=== PATIENT | male | born 1960 | race African-American/Black ===

== ENCOUNTER 2017-03-12 17:55 | Emergency (ER) | payer MEDICAID ==
[~2017-03-12] VITALS: Ht 175.3 cm; Wt 57.0 kg
[~2017-03-12 17:55] MED LIST: ACET-2178 PO; CHOL400T15 MT; FLUO-124 PO; HYDR-2510 PO; LORA1TAB PO; MELO-106 PO; METO-539 PO; MULT-1146 PO; SPIR50TA26 PO; TRAZ-132 PO
[2017-03-12] MEDS ORDERED: OXYCODONE HCL/ACETAMINOPHEN 5/325MG TABLET PO ONE (22:00)
[2017-03-12 22:23] LABS: BASOPHILS % 0.6 % (0.0-2.0); EOSINOPHILS % 1.8 % (0.0-5.0); HEMATOCRIT. 39.9 % (42.0-52.0); HEMOGLOBIN. 13.3 g/dL (14.0-18.0); LYMPHOCYTES % 7.2 % (20.0-50.0); MEAN CORPUSCULAR HEMOGLOBIN 27.3 pg (28.0-32.0); MEAN CORPUSCULAR VOLUME 81.9 fL (80.0-94.0); MEAN PLATELET VOLUME 9.2 fl (7.4-10.4); NEUTROPHILS % 79.4 % (40.0-76.0); PLATELET 251 x1000/uL (130-400); RED BLOOD CELL COUNT 4.88 mill/uL (4.7-6.1); RED CELL DISTRIBUTION WIDTH 15.8 % (11.6-14.6)
[2017-03-12 22:35] LABS: CARBON DIOXIDE 23 mEq/L (21-32); CHLORIDE 98 mEq/L (98-107)
[2017-03-12 22:49] LABS: INR 1.1; PROTHROMBIN TIME 11.6 sec
[2017-03-12 23:53] LABS: CLARITY URINE CLOUDY (CLEAR); COLOR URINE DARK YELLOW (YELLOW); KETONES URINE NEGATIVE (NEGATIVE); LEUKOCYTE ESTERASE URINE NEGATIVE (NEGATIVE); NITRITE URINE NEGATIVE (NEGATIVE); OCCULT BLOOD URINE TRACE (NEGATIVE); PROTEIN URINE 2+ (NEGATIVE); SPECIFIC GRAVITY URINE 1.023 (1.005-1.030); UROBILINOGEN URINE 0.2 E.U./dL (0.2-1.0)
[2017-03-13] MEDS ORDERED: OXYCODONE HCL/ACETAMINOPHEN 5/325MG TABLET PO ONE (00:15)
[2017-03-13 00:42] VITALS: BP 173/108
== END 2017-03-13 01:22 | disposition home or self-care (01) ==
LOC: ER 21:45
DX: N43.3 Hydrocele, unspecified (principal); F41.9 Anxiety disorder, unspecified; F10.20 Alcohol dependence, uncomplicated; I12.9 Hypertensive chronic kidney disease with stage 1 through stage 4 chronic kidney disease, or unspecified chronic kidney disease; N18.9 Chronic kidney disease, unspecified; F17.200 Nicotine dependence, unspecified, uncomplicated
CPT/HCPCS: 36415; 76870; 80053; 81001; 85025; 85610; 93976; 99285; Z7610

== ENCOUNTER 2017-05-19 15:26 | Emergency (ER) | payer MEDICAID ==
[~2017-05-19] VITALS: Ht 175.3 cm; Wt 57.0 kg
[~2017-05-19 15:26] MED LIST changes: -METO-539 PO; +METO50TA5 PO
[2017-05-19] MEDS ORDERED: ASPIRIN 81MG TABLET PO STA (16:38)
[2017-05-19 17:17] LABS: BASOPHILS % 1.1 % (0.0-2.0); EOSINOPHILS % 4.3 % (0.0-5.0); HEMATOCRIT. 40.6 % (42.0-52.0); HEMOGLOBIN. 13.1 g/dL (14.0-18.0); LYMPHOCYTES % 13.1 % (20.0-50.0); MEAN CORPUSCULAR HEMOGLOBIN 27.3 pg (28.0-32.0); MEAN CORPUSCULAR VOLUME 84.3 fL (80.0-94.0); MEAN PLATELET VOLUME 9.3 fl (7.4-10.4); NEUTROPHILS % 70.5 % (40.0-76.0); PLATELET 275 x1000/uL (130-400); RED BLOOD CELL COUNT 4.82 mill/uL (4.7-6.1); RED CELL DISTRIBUTION WIDTH 15.4 % (11.6-14.6)
[2017-05-19 17:21] LABS: CHLORIDE 104 mEq/L (98-107)
[2017-05-19 17:22] LABS: INR 1.1; PARTIAL THROMBOPLASTIN TIME 29.9 sec (23.4-31.0); PROTHROMBIN TIME 11.5 sec (9.4-11.6)
[2017-05-19 17:26] LABS: CARBON DIOXIDE 23 mEq/L (21-32)
[2017-05-19 17:30] LABS: ETHANOL BLOOD < 10 mg/dL
[2017-05-19 17:33] LABS: TROPONIN I < 0.02 ng/mL (0.00-0.04)
[2017-05-19 18:45] LABS: CLARITY URINE CLOUDY (CLEAR); COLOR URINE YELLOW (YELLOW); GLUCOSE URINE NEGATIVE (NEGATIVE); KETONES URINE TRACE (NEGATIVE); LEUKOCYTE ESTERASE URINE NEGATIVE (NEGATIVE); NITRITE URINE NEGATIVE (NEGATIVE); OCCULT BLOOD URINE NEGATIVE (NEGATIVE); PROTEIN URINE TRACE (NEGATIVE); SPECIFIC GRAVITY URINE 1.023 (1.005-1.030); UROBILINOGEN URINE 0.2 E.U./dL (0.2-1.0)
[2017-05-19 19:06] LABS: *AMPHETAMINES SCREEN URINE NEGATIVE (NEGATIVE); *BARBITURATES SCREEN URINE NEGATIVE (NEGATIVE); *BENZODIAZEPINES SCREEN URINE NEGATIVE (NEGATIVE); *COCAINE SCREEN URINE NEGATIVE (NEGATIVE); CANNABINOID URINE SCREEN PRESUMTIVE POSITIVE (NEGATIVE); METHADONE URINE SCREEN NEGATIVE (NEGATIVE); OPIATES URINE SCREEN NEGATIVE (NEGATIVE); PHENCYCLIDINE URINE SCREEN NEGATIVE (NEGATIVE)
[2017-05-19 19:34] VITALS: BP 131/79
== END 2017-05-19 19:53 | disposition left against medical advice (07) ==
LOC: ER 15:52 → CANBEDREQ 22:56
DX: R07.89 Other chest pain (principal); G89.29 Other chronic pain; I13.0 Hypertensive heart and chronic kidney disease with heart failure and stage 1 through stage 4 chronic kidney disease, or unspecified chronic kidney disease; N18.9 Chronic kidney disease, unspecified; D63.1 Anemia in chronic kidney disease; J98.11 Atelectasis; F41.9 Anxiety disorder, unspecified; F17.210 Nicotine dependence, cigarettes, uncomplicated; K76.9 Liver disease, unspecified
CPT/HCPCS: 36415; 71010; 80053; 80305; 81001; 83880; 84484; 85025; 85610; 85730; 93005; 99285; G0482

== ENCOUNTER 2017-06-15 08:35 | Emergency (ER) | payer MEDICAID ==
[~2017-06-15] VITALS: Ht 175.3 cm; Wt 59.0 kg
[2017-06-15] MEDS ORDERED: SODIUM CHLORIDE 0.9% 1,000 ML IV ONE (09:20)
[2017-06-15] MEDS ORDERED: ONDANSETRON HCL 4MG/2ML VIAL IV STA (09:20)
[2017-06-15] MEDS ORDERED: MORPHINE SULFATE 4 MG/ML CPJ (NOT FOR IM USE) IV STA (09:20)
[2017-06-15] MEDS ORDERED: MORPHINE SULFATE 10 MG/ML CPJ IV STA (09:37)
[2017-06-15 10:22] LABS: HEMATOCRIT. 46.4 % (42.0-52.0); HEMOGLOBIN. 15.5 g/dL (14.0-18.0); MEAN CORPUSCULAR HEMOGLOBIN 27.8 pg (28.0-32.0); MEAN CORPUSCULAR VOLUME 83.1 fL (80.0-94.0); MEAN PLATELET VOLUME 8.7 fl (7.4-10.4); PLATELET 247 x1000/uL (130-400); RED BLOOD CELL COUNT 5.58 mill/uL (4.7-6.1); RED CELL DISTRIBUTION WIDTH 15.4 % (11.6-14.6)
[2017-06-15 10:39] LABS: CARBON DIOXIDE 26 mEq/L (21-32); CHLORIDE 100 mEq/L (98-107); TROPONIN I < 0.02 ng/mL (0.00-0.04)
[2017-06-15 10:41] LABS: INR 1.1; PROTHROMBIN TIME 11.3 sec (9.4-11.6)
[2017-06-15 10:51] LABS: PLATELET ESTIMATE NORMAL
[2017-06-15] MEDS ORDERED: IOHEXOL-300 100 ML BOTTLE ONE (12:40)
[2017-06-15 13:20] LABS: GLUCOSE URINE NEGATIVE (NEGATIVE); KETONES URINE TRACE (NEGATIVE); LEUKOCYTE ESTERASE URINE NEGATIVE (NEGATIVE); NITRITE URINE NEGATIVE (NEGATIVE); OCCULT BLOOD URINE NEGATIVE (NEGATIVE); PROTEIN URINE NEGATIVE (NEGATIVE); UROBILINOGEN URINE 0.2 E.U./dL (0.2-1.0)
[2017-06-15 13:21] LABS: CLARITY URINE CLEAR (CLEAR); COLOR URINE YELLOW (YELLOW)
[2017-06-15 18:03] VITALS: BP 147/93
== END 2017-06-15 18:00 | disposition short-term general hospital (02) ==
LOC: ER 11:34
DX: C79.82 Secondary malignant neoplasm of genital organs (principal); C78.02 Secondary malignant neoplasm of left lung; I10 Essential (primary) hypertension; N43.3 Hydrocele, unspecified; C80.1 Malignant (primary) neoplasm, unspecified; F41.9 Anxiety disorder, unspecified; I13.0 Hypertensive heart and chronic kidney disease with heart failure and stage 1 through stage 4 chronic kidney disease, or unspecified chronic kidney disease; N18.9 Chronic kidney disease, unspecified; I50.9 Heart failure, unspecified; F12.90 Cannabis use, unspecified, uncomplicated; F10.20 Alcohol dependence, uncomplicated; K70.9 Alcoholic liver disease, unspecified; Y90.9 Presence of alcohol in blood, level not specified; D64.9 Anemia, unspecified; F17.210 Nicotine dependence, cigarettes, uncomplicated; Z79.899 Other long term (current) drug therapy
CPT/HCPCS: 36415; 71010; 71260; 76870; 80053; 81003; 82962; 83605; 83690; 83880; 84484; 85025; 85610; 87040; 87086; 93005; 93976; 96361; 96374; 96375; 99285; J2270; J2405; Q9967; J7030

== ENCOUNTER 2017-07-20 10:01 | Emergency (ER) | payer MEDICAID ==
[~2017-07-20] VITALS: Ht 175.3 cm; Wt 54.0 kg
[~2017-07-20 10:01] MED LIST changes: +METO-539 PO; -METO50TA5 PO
[2017-07-20] MEDS ORDERED: MORPHINE SULFATE 4 MG/ML CPJ (NOT FOR IM USE) IV STA (11:24)
[2017-07-20] MEDS ORDERED: ONDANSETRON HCL 4MG/2ML VIAL IV STA (11:24)
[2017-07-20] MEDS ORDERED: MORPHINE SULFATE 10 MG/ML CPJ IV NR (11:32)
[2017-07-20 11:47] LABS: CLARITY URINE CLEAR (CLEAR); COLOR URINE YELLOW (YELLOW); GLUCOSE URINE NEGATIVE (NEGATIVE); KETONES URINE NEGATIVE (NEGATIVE); LEUKOCYTE ESTERASE URINE NEGATIVE (NEGATIVE); NITRITE URINE NEGATIVE (NEGATIVE); OCCULT BLOOD URINE NEGATIVE (NEGATIVE); PROTEIN URINE NEGATIVE (NEGATIVE); SPECIFIC GRAVITY URINE 1.012 (1.005-1.030); UROBILINOGEN URINE 0.2 E.U./dL (0.2-1.0)
[2017-07-20 11:56] LABS: BASOPHILS % 0.8 % (0.0-2.0); EOSINOPHILS % 6.3 % (0.0-5.0); HEMATOCRIT. 46.1 % (42.0-52.0); HEMOGLOBIN. 14.8 g/dL (14.0-18.0); LYMPHOCYTES % 10.4 % (20.0-50.0); MEAN CORPUSCULAR HEMOGLOBIN 26.8 pg (28.0-32.0); MEAN CORPUSCULAR VOLUME 83.5 fL (80.0-94.0); MEAN PLATELET VOLUME 8.2 fl (7.4-10.4); MONOCYTES % 13.8 % (2.0-8.0); NEUTROPHILS % 68.7 % (40.0-76.0); PLATELET 284 x1000/uL (130-400); RED BLOOD CELL COUNT 5.52 mill/uL (4.7-6.1); RED CELL DISTRIBUTION WIDTH 15.5 % (11.6-14.6)
[2017-07-20 12:07] LABS: CHLORIDE 95 mEq/L (98-107)
[2017-07-20 12:13] LABS: CARBON DIOXIDE 24 mEq/L (21-32)
[2017-07-20] MEDS ORDERED: SODIUM CHLORIDE 0.9% 1000ML BAG (SEPSIS BOLUS) IV ONE (12:30)
[2017-07-20] MEDS ORDERED: SODIUM CHLORIDE 0.9% 1,620 ML IV SCH (12:30)
[2017-07-20 14:01] VITALS: BP 121/54
== END 2017-07-20 14:41 | disposition home or self-care (01) ==
LOC: ER 11:21
DX: N50.82 Scrotal pain (principal); E86.0 Dehydration; E87.1 Hypo-osmolality and hyponatremia; N43.3 Hydrocele, unspecified; R03.0 Elevated blood-pressure reading, without diagnosis of hypertension; F10.20 Alcohol dependence, uncomplicated; Y90.9 Presence of alcohol in blood, level not specified
CPT/HCPCS: 36415; 76870; 80053; 81003; 83605; 83690; 85025; 93976; 96374; 96375; 99285; J2270; J2405; Z7610

== ENCOUNTER 2017-10-08 03:35 | Inpatient (IN) | payer MEDICAID ==
[~2017-10-08] VITALS: Ht 175.3 cm; Wt 50.8 kg
[~2017-10-08 03:35] MED LIST changes: -SPIR50TA26 PO; +SPIR50TA5 PO; -TRAZ-132 PO; +TRAZ-213 PO
[2017-10-08] MEDS ORDERED: MORPHINE SULFATE 4 MG/ML CPJ (NOT FOR IM USE) IV STA (04:04)
[2017-10-08] MEDS ORDERED: ONDANSETRON HCL 4MG/2ML INJ IV STA (04:04)
[2017-10-08 04:22] LABS: BASOPHILS % 0.4 % (0.0-2.0); EOSINOPHILS % 0.4 % (0.0-5.0); HEMATOCRIT. 35.4 % (42.0-52.0); HEMOGLOBIN. 11.7 g/dL (14.0-18.0); LYMPHOCYTES % 4.1 % (20.0-50.0); MEAN CORPUSCULAR VOLUME 78.5 fL (80.0-94.0); MEAN PLATELET VOLUME 8.2 fl (7.4-10.4); MONOCYTES % 11.1 % (2.0-8.0); PLATELET 478 x1000/uL (130-400); RED CELL DISTRIBUTION WIDTH 17.7 % (11.6-14.6)
[2017-10-08 04:40] LABS: CHLORIDE 95 mEq/L (98-107)
[2017-10-08] MEDS ORDERED: SODIUM CHLORIDE 0.9% 1,000 ML IV SCH (05:28)
[2017-10-08] MEDS ORDERED: LORAZEPAM 2MG/ML CPJ IV ONE (06:00)
[2017-10-08] MEDS ORDERED: IOHEXOL-350 100 ML BOTTLE ONE (06:23)
[2017-10-08 08:40] VITALS: BP 123/79
[2017-10-08] MEDS ORDERED: FURO20TA4 PO (09:18)
[2017-10-08] MEDS ORDERED: METO-396 PO (09:18)
[2017-10-08 09:30] VITALS: BP 123/79
[2017-10-08] MEDS ORDERED: MEDICATION NOT ON FORMULARY EA (Multivitamin (Multi Vitamin Daily) 1 TAB) PO SCH (10:30)
[2017-10-08] MEDS ORDERED: LORAZEPAM 1MG TABLET PO PRN (10:30)
[2017-10-08] MEDS ORDERED: CHOLECALCIFEROL MT SCH (10:30)
[2017-10-08 12:00] VITALS: BP 124/87
[2017-10-08 12:11] LABS: CREATINE KINASE 13 IU/L (39-308)
[2017-10-08 12:12] LABS: CREATINE KINASE MB FRACTION 1.5 ng/mL (0.5-3.6)
[2017-10-08] MEDS ORDERED: LORA1TAB PO (15:32)
[2017-10-08 16:00] VITALS: BP 140/90
[2017-10-08] MEDS: MULTIVITAMINS,THER W-MINERALS TABLET PO SCH (16:11)
[2017-10-08] MEDS: FUROSEMIDE 20MG TABLET PO SCH (16:11)
[2017-10-08] MEDS: FLUOXETINE HCL 20MG CAPSULE PO SCH (16:12)
[2017-10-08] MEDS: SPIRONOLACTONE 50MG TABLET PO SCH (16:16)
[2017-10-08] MEDS: HYDROCHLOROTHIAZIDE 50MG TABLET PO SCH (16:16)
[2017-10-08] MEDS ORDERED: METHYLPREDNISOLONE SOD SUCC 125 MG/2 ML VIAL IV NR (18:15)
[2017-10-08] MEDS: CHOLECALCIFEROL (VIT D3) 400 UNIT TABLET PO SCH (18:26)
[2017-10-08] MEDS: SODIUM CHLORIDE 0.9% 1,000 ML IV SCH (18:26)
[2017-10-08] MEDS: LORAZEPAM 1MG TABLET PO SCH (18:26)
[2017-10-08] MEDS ORDERED: ONDANSETRON HCL 4MG/2ML INJ IV PRN (18:45)
[2017-10-08] MEDS: MORPHINE SULFATE 4 MG/ML CPJ (NOT FOR IM USE) IV PRN (18:55)
[2017-10-08 20:00] VITALS: BP 128/83
[2017-10-08] MEDS: IPRATROPIUM/ALBUTEROL 0.5-3(2.5)MG/3ML NEB HHN SCH (20:16)
[2017-10-08] MEDS: CEFTRIAXONE 1 G PREMIX 50 ML IV SCH (20:32)
[2017-10-08 20:52] LABS: CREATINE KINASE 14 IU/L (39-308); CREATINE KINASE MB FRACTION 1.4 ng/mL (0.5-3.6)
[2017-10-08] MEDS: TRAZODONE HCL 100MG TABLET PO SCH (21:24)
[2017-10-08] MEDS: AZITHROMYCIN 500 MG in DEXT 5% WATER 250 ML IV SCH (21:26)
[2017-10-09] VITALS: BP 138/92
[2017-10-09] MEDS: IPRATROPIUM/ALBUTEROL 0.5-3(2.5)MG/3ML NEB HHN SCH ×6 (00:38→20:24)
[2017-10-09] MEDS: METHYLPREDNISOLONE SOD SUCC 40 MG/ML VIAL IV SCH ×3 (01:53→17:15)
[2017-10-09] MEDS: LORAZEPAM 1MG TABLET PO SCH ×4 (01:53→18:00)
[2017-10-09 04:00] VITALS: BP 109/97
[2017-10-09 06:29] LABS: HEMATOCRIT. 35.3 % (42.0-52.0); HEMOGLOBIN. 11.8 g/dL (14.0-18.0); MEAN CORPUSCULAR HEMOGLOBIN 26.5 pg (28.0-32.0); MEAN CORPUSCULAR VOLUME 79.1 fL (80.0-94.0); MEAN PLATELET VOLUME 8.4 fl (7.4-10.4); PLATELET 446 x1000/uL (130-400); RED BLOOD CELL COUNT 4.46 mill/uL (4.7-6.1); RED CELL DISTRIBUTION WIDTH 17.5 % (11.6-14.6)
[2017-10-09 06:30] LABS: CHLORIDE 96 mEq/L (98-107)
[2017-10-09 08:00] VITALS: BP 140/83
[2017-10-09] MEDS ORDERED: MELOXICAM 7.5 MG PO SCH (09:00)
[2017-10-09] MEDS ORDERED: MEDICATION NOT ON FORMULARY EA (Metoprolol Succinate 25 MG) PO SCH (09:00)
[2017-10-09] MEDS: FUROSEMIDE 20MG TABLET PO SCH (10:10)
[2017-10-09] MEDS: MULTIVITAMINS,THER W-MINERALS TABLET PO SCH (10:10)
[2017-10-09] MEDS: ENOXAPARIN 40MG/0.4ML SYR SUBCUT SCH (10:10)
[2017-10-09] MEDS: MELOXICAM 7.5MG TABLET PO SCH (10:10)
[2017-10-09] MEDS: FLUOXETINE HCL 20MG CAPSULE PO SCH (10:10)
[2017-10-09] MEDS: CHOLECALCIFEROL (VIT D3) 400 UNIT TABLET PO SCH (10:11)
[2017-10-09] MEDS: METOPROLOL TARTRATE 25MG TABLET PO SCH ×2 (10:12→21:19)
[2017-10-09] MEDS: SPIRONOLACTONE 50MG TABLET PO SCH (10:12)
[2017-10-09] MEDS ORDERED: CLONIDINE 0.2MG TABLET PO PRN (10:15)
[2017-10-09 12:00] VITALS: BP 118/75
[2017-10-09] MEDS: HYDROCHLOROTHIAZIDE 50MG TABLET PO SCH (12:28)
[2017-10-09] MEDS: SODIUM CHLORIDE 0.9% 1,000 ML IV SCH ×2 (12:28→19:56)
[2017-10-09] MEDS ORDERED: MEDICATION NOT ON FORMULARY EA XX SCH (12:45)
[2017-10-09 13:46] LABS: PLATELET ESTIMATE INCREASED
[2017-10-09 16:00] VITALS: BP 147/81
[2017-10-09] MEDS: GUAIFENESIN/CODEINE 200-20MG/10ML UDC PO PRN (16:11)
[2017-10-09] MEDS: MORPHINE SULFATE 4 MG/ML CPJ (NOT FOR IM USE) IV PRN (17:15)
[2017-10-09] MEDS: CEFTRIAXONE 1 G PREMIX 50 ML IV SCH (19:56)
[2017-10-09 20:00] VITALS: BP 118/69
[2017-10-09 20:00] LABS: BASOPHILS % 0.2 % (0.0-2.0); HEMATOCRIT. 34.3 % (42.0-52.0); HEMOGLOBIN. 11.3 g/dL (14.0-18.0); LYMPHOCYTES % 1.4 % (20.0-50.0); MEAN CORPUSCULAR HEMOGLOBIN 26.2 pg (28.0-32.0); MEAN CORPUSCULAR VOLUME 79.4 fL (80.0-94.0); MEAN PLATELET VOLUME 7.8 fl (7.4-10.4); MONOCYTES % 3.2 % (2.0-8.0); NEUTROPHILS % 95.2 % (40.0-76.0); PLATELET 381 x1000/uL (130-400); RED BLOOD CELL COUNT 4.33 mill/uL (4.7-6.1); RED CELL DISTRIBUTION WIDTH 17.9 % (11.6-14.6)
[2017-10-09 20:07] LABS: CHLORIDE 100 mEq/L (98-107)
[2017-10-09] MEDS ORDERED: MAGNESIUM 2 G PREMIX 50 ML IV NR (21:00)
[2017-10-09] MEDS: AZITHROMYCIN 500 MG in DEXT 5% WATER 250 ML IV SCH (21:18)
[2017-10-09] MEDS: TRAZODONE HCL 100MG TABLET PO SCH (21:19)
[2017-10-10] VITALS: BP 110/71
[2017-10-10] MEDS: LORAZEPAM 1MG TABLET PO SCH ×3 (02:00→17:38)
[2017-10-10] MEDS: METHYLPREDNISOLONE SOD SUCC 40 MG/ML VIAL IV SCH ×3 (02:06→17:38)
[2017-10-10 04:00] VITALS: BP 158/93
[2017-10-10] MEDS: IPRATROPIUM/ALBUTEROL 0.5-3(2.5)MG/3ML NEB HHN SCH ×6 (05:00→20:42)
[2017-10-10] MEDS: CLONIDINE 0.1MG TABLET PO PRN ×2 (06:16→20:36)
[2017-10-10 08:00] VITALS: BP 119/66
[2017-10-10] MEDS: ENOXAPARIN 40MG/0.4ML SYR SUBCUT SCH (09:00)
[2017-10-10] MEDS: METOPROLOL TARTRATE 25MG TABLET PO SCH ×2 (09:00→20:37)
[2017-10-10] MEDS: SPIRONOLACTONE 50MG TABLET PO SCH (09:00)
[2017-10-10] MEDS: CHOLECALCIFEROL (VIT D3) 400 UNIT TABLET PO SCH (09:01)
[2017-10-10] MEDS: FUROSEMIDE 20MG TABLET PO SCH (09:01)
[2017-10-10] MEDS: FLUOXETINE HCL 20MG CAPSULE PO SCH (09:01)
[2017-10-10] MEDS: MELOXICAM 7.5MG TABLET PO SCH (09:01)
[2017-10-10] MEDS: MULTIVITAMINS,THER W-MINERALS TABLET PO SCH (09:01)
[2017-10-10] MEDS: SODIUM CHLORIDE 0.9% 1,000 ML IV SCH (10:15)
[2017-10-10 12:00] VITALS: BP 134/86
[2017-10-10 16:00] VITALS: BP 124/69
[2017-10-10] MEDS: ZINC SULFATE 220 MG ( 50 ) CAPSULE PO SCH (17:38)
[2017-10-10] MEDS: CEFTRIAXONE 1 G PREMIX 50 ML IV SCH (18:15)
[2017-10-10 20:00] VITALS: BP 179/99
[2017-10-10] MEDS: TRAZODONE HCL 100MG TABLET PO SCH (20:36)
[2017-10-10] MEDS: ASCORBIC ACID 250 MG TABLET PO SCH (20:36)
[2017-10-10] MEDS: AZITHROMYCIN 500 MG in DEXT 5% WATER 250 ML IV SCH (20:36)
[2017-10-10] MEDS: MORPHINE SULFATE 4 MG/ML CPJ (NOT FOR IM USE) IV PRN (20:38)
[2017-10-11] VITALS: BP 143/77
[2017-10-11] MEDS: IPRATROPIUM/ALBUTEROL 0.5-3(2.5)MG/3ML NEB HHN SCH ×6 (00:20→21:09)
[2017-10-11] MEDS: LORAZEPAM 1MG TABLET PO SCH ×3 (02:00→16:20)
[2017-10-11] MEDS: SODIUM CHLORIDE 0.9% 1,000 ML IV SCH ×2 (02:03→13:05)
[2017-10-11] MEDS: METHYLPREDNISOLONE SOD SUCC 40 MG/ML VIAL IV SCH ×3 (02:03→16:19)
[2017-10-11 04:00] VITALS: BP 160/86
[2017-10-11 08:00] VITALS: BP 151/77
[2017-10-11] MEDS: ENOXAPARIN 40MG/0.4ML SYR SUBCUT SCH (08:53)
[2017-10-11] MEDS: FUROSEMIDE 20MG TABLET PO SCH (08:54)
[2017-10-11] MEDS: SPIRONOLACTONE 50MG TABLET PO SCH (08:54)
[2017-10-11] MEDS: FLUOXETINE HCL 20MG CAPSULE PO SCH (08:54)
[2017-10-11] MEDS: MELOXICAM 7.5MG TABLET PO SCH (08:54)
[2017-10-11] MEDS: ASCORBIC ACID 250 MG TABLET PO SCH ×2 (08:54→20:39)
[2017-10-11] MEDS: MULTIVITAMINS,THER W-MINERALS TABLET PO SCH (08:55)
[2017-10-11] MEDS: METOPROLOL TARTRATE 25MG TABLET PO SCH ×2 (08:55→20:40)
[2017-10-11] MEDS: ZINC SULFATE 220 MG ( 50 ) CAPSULE PO SCH (08:55)
[2017-10-11] MEDS: CHOLECALCIFEROL (VIT D3) 400 UNIT TABLET PO SCH (08:55)
[2017-10-11] MEDS ORDERED: GADOBENATE DIMEGLUMINE 529 MG/ML 10ML IV ONE (09:14)
[2017-10-11 12:00] VITALS: BP 166/90
[2017-10-11] MEDS: CLONIDINE 0.1MG TABLET PO PRN (13:05)
[2017-10-11 16:00] VITALS: BP 132/81
[2017-10-11] MEDS: GUAIFENESIN/CODEINE 200-20MG/10ML UDC PO PRN (16:20)
[2017-10-11] MEDS: CEFTRIAXONE 1 G PREMIX 50 ML IV SCH (16:20)
[2017-10-11 19:32] VITALS: BP 155/97
[2017-10-11] MEDS: MORPHINE SULFATE 4 MG/ML CPJ (NOT FOR IM USE) IV PRN (19:34)
[2017-10-11] MEDS: TRAZODONE HCL 100MG TABLET PO SCH (20:39)
[2017-10-11] MEDS: AZITHROMYCIN 500 MG in DEXT 5% WATER 250 ML IV SCH (20:40)
[2017-10-12] VITALS (7 sets, daily range): BP systolic 113–188; BP diastolic 68–99
[2017-10-12] MEDS: IPRATROPIUM/ALBUTEROL 0.5-3(2.5)MG/3ML NEB HHN SCH ×5 (00:58→20:09)
[2017-10-12] MEDS: METHYLPREDNISOLONE SOD SUCC 40 MG/ML VIAL IV SCH ×3 (01:53→17:15)
[2017-10-12] MEDS: LORAZEPAM 1MG TABLET PO SCH ×4 (01:53→17:15)
[2017-10-12] MEDS: SODIUM CHLORIDE 0.9% 1,000 ML IV SCH ×2 (02:57→18:23)
[2017-10-12] MEDS: CLONIDINE 0.1MG TABLET PO PRN (06:34)
[2017-10-12 06:53] LABS: INR 1.1; PARTIAL THROMBOPLASTIN TIME 28.7 sec (23.4-31.0); PROTHROMBIN TIME 11.3 sec (9.4-11.6)
[2017-10-12 06:55] LABS: HEMATOCRIT. 39.9 % (42.0-52.0); HEMOGLOBIN. 12.8 g/dL (14.0-18.0); MEAN CORPUSCULAR HEMOGLOBIN 25.4 pg (28.0-32.0); MEAN CORPUSCULAR VOLUME 79.5 fL (80.0-94.0); MEAN PLATELET VOLUME 8.5 fl (7.4-10.4); PLATELET 435 x1000/uL (130-400); RED BLOOD CELL COUNT 5.02 mill/uL (4.7-6.1); RED CELL DISTRIBUTION WIDTH 17.8 % (11.6-14.6)
[2017-10-12] MEDS: MORPHINE SULFATE 4 MG/ML CPJ (NOT FOR IM USE) IV PRN ×3 (06:58→18:40)
[2017-10-12 07:42] LABS: CHLORIDE 98 mEq/L (98-107)
[2017-10-12 08:49] LABS: PLATELET ESTIMATE INCREASED
[2017-10-12] MEDS: FUROSEMIDE 20MG TABLET PO SCH (08:59)
[2017-10-12] MEDS: SPIRONOLACTONE 50MG TABLET PO SCH (08:59)
[2017-10-12] MEDS: METOPROLOL TARTRATE 25MG TABLET PO SCH ×2 (08:59→23:00)
[2017-10-12] MEDS: ASCORBIC ACID 250 MG TABLET PO SCH ×2 (12:04→23:00)
[2017-10-12] MEDS: MULTIVITAMINS,THER W-MINERALS TABLET PO SCH (12:04)
[2017-10-12] MEDS: MELOXICAM 7.5MG TABLET PO SCH (12:05)
[2017-10-12] MEDS: CHOLECALCIFEROL (VIT D3) 400 UNIT TABLET PO SCH (12:05)
[2017-10-12] MEDS: FLUOXETINE HCL 20MG CAPSULE PO SCH (12:05)
[2017-10-12] MEDS: ZINC SULFATE 220 MG ( 50 ) CAPSULE PO SCH (12:05)
[2017-10-12] MEDS ORDERED: AMLODIPINE 2.5MG TABLET PO SCH (14:30)
[2017-10-12] MEDS ORDERED: AMLODIPINE 5MG TABLET PO SCH (14:30)
[2017-10-12] MEDS: LOSARTAN POTASSIUM 25 MG TABLET PO SCH ×2 (15:43→23:00)
[2017-10-12] MEDS: CEFTRIAXONE 1 G PREMIX 50 ML IV SCH (18:23)
[2017-10-12] MEDS: AZITHROMYCIN 500 MG in DEXT 5% WATER 250 ML IV SCH (22:59)
[2017-10-12] MEDS: TRAZODONE HCL 100MG TABLET PO SCH (23:00)
[2017-10-13] VITALS (15 sets, daily range): BP systolic 141–184; BP diastolic 85–104
[2017-10-13] MEDS: IPRATROPIUM/ALBUTEROL 0.5-3(2.5)MG/3ML NEB HHN SCH ×5 (00:22→16:41)
[2017-10-13] MEDS: LORAZEPAM 1MG TABLET PO SCH ×2 (02:00→10:00)
[2017-10-13] MEDS: METHYLPREDNISOLONE SOD SUCC 40 MG/ML VIAL IV SCH ×2 (02:00→10:05)
[2017-10-13] MEDS: SODIUM CHLORIDE 0.9% 1,000 ML IV SCH (05:35)
[2017-10-13] MEDS: SPIRONOLACTONE 50MG TABLET PO SCH (09:00)
[2017-10-13] MEDS: METOPROLOL TARTRATE 25MG TABLET PO SCH (09:00)
[2017-10-13] MEDS ORDERED: HYDRALAZINE 20MG/ML VIAL IV NR (09:37)
[2017-10-13] MEDS ORDERED: FENTANYL CITRATE/PF 50MCG/ML 2ML VIAL ONE (10:04)
[2017-10-13] MEDS ORDERED: LIDOCAINE HCL 1% 20ML VIAL (Pyxis) INJ ONE (10:27)
[2017-10-13] MEDS ORDERED: SODIUM BICARBONATE 4% (2.4MEQ) 5ML VIAL IV ONE (10:28)
[2017-10-13] MEDS ORDERED: FENTANYL CITRATE/PF 50MCG/ML 2ML VIAL IV ONE (11:00)
[2017-10-13] MEDS ORDERED: HYDRALAZINE 20MG/ML VIAL IV PRN (13:15)
[2017-10-13] MEDS ORDERED: CLONIDINE 0.2MG TABLET PO PRN (13:15)
[2017-10-13] MEDS: FLUOXETINE HCL 20MG CAPSULE PO SCH (13:16)
[2017-10-13] MEDS: MELOXICAM 7.5MG TABLET PO SCH (13:16)
[2017-10-13] MEDS: MULTIVITAMINS,THER W-MINERALS TABLET PO SCH (13:17)
[2017-10-13] MEDS: ZINC SULFATE 220 MG ( 50 ) CAPSULE PO SCH (13:18)
[2017-10-13] MEDS: CHOLECALCIFEROL (VIT D3) 400 UNIT TABLET PO SCH (13:18)
[2017-10-13] MEDS: LOSARTAN POTASSIUM 25 MG TABLET PO SCH (13:18)
[2017-10-13] MEDS: ASCORBIC ACID 250 MG TABLET PO SCH (13:18)
[2017-10-13] MEDS: MORPHINE SULFATE 4 MG/ML CPJ (NOT FOR IM USE) IV PRN (13:33)
[2017-10-13] MEDS: CLONIDINE 0.1MG TABLET PO PRN (17:38)
[2017-10-13] MEDS ORDERED: AMLODIPINE 10MG TABLET PO SCH (21:00)
== END 2017-10-13 18:50 | disposition home or self-care (01) | DRG 133 ==
LOC: ER 04:01 → 7WST 05:29 → EDBEDREQ 05:39 → EDBEDREQTM 05:39 → ENRESERV 07:41
PROVIDERS: ADMIT Internal Medicine; ATTEND Internal Medicine
PROC: 0WBC3ZX Excision of Mediastinum, Percutaneous Approach, Diagnostic (ICD-10-PCS; principal; 2017-10-13)
DX: J96.20 Acute and chronic respiratory failure, unspecified whether with hypoxia or hypercapnia (principal); R64 Cachexia; C78.00 Secondary malignant neoplasm of unspecified lung; I13.0 Hypertensive heart and chronic kidney disease with heart failure and stage 1 through stage 4 chronic kidney disease, or unspecified chronic kidney disease; C79.31 Secondary malignant neoplasm of brain; E46 Unspecified protein-calorie malnutrition; I50.9 Heart failure, unspecified; R65.10 Systemic inflammatory response syndrome (SIRS) of non-infectious origin without acute organ dysfunction; J44.1 Chronic obstructive pulmonary disease with (acute) exacerbation; C79.51 Secondary malignant neoplasm of bone; R07.81 Pleurodynia; E87.1 Hypo-osmolality and hyponatremia; F03.90 Unspecified dementia, unspecified severity, without behavioral disturbance, psychotic disturbance, mood disturbance, and anxiety; F17.200 Nicotine dependence, unspecified, uncomplicated; R59.0 Localized enlarged lymph nodes; F10.10 Alcohol abuse, uncomplicated; F32.9 Major depressive disorder, single episode, unspecified; F41.9 Anxiety disorder, unspecified; N18.9 Chronic kidney disease, unspecified; Z99.81 Dependence on supplemental oxygen; Z68.1 Body mass index [BMI] 19.9 or less, adult; Z85.118 Personal history of other malignant neoplasm of bronchus and lung; Z86.73 Personal history of transient ischemic attack (TIA), and cerebral infarction without residual deficits; Z79.899 Other long term (current) drug therapy
CPT/HCPCS: 32405; 36415; 70551; 70552; 71045; 71275; 74176; 77012; 80048; 82378; 82550; 82553; 83735; 84443; 84484; 86301; 88305; 93005; 93306; 94640; 94664; 96361; 96374; 96375; 99285; A9577; C1893; J0360; J0456; J0696; J1650; J2060; J2270; J2405; J2920; J2930; J3010; J3475; J3490; J7030; J7050; J7060; J7620; Q9967